=== PATIENT | female | born 1975 | race Caucasian/White ===

== ENCOUNTER 2023-02-10 04:11 | Day surgery (SDC) | payer OTHER ==
[2023-02-09 13:57] VITALS: BMI 39.1
[2023-02-10] MEDS ORDERED: LIDOCAINE HCL/PF 2% SDV 5ML VIAL ONE (07:37)
[2023-02-10] MEDS ORDERED: MIDAZOLAM HCL 2 MG/2 ML SINGLE DOSE VIAL ONE (07:38)
[2023-02-10] MEDS ORDERED: PROPOFOL 40 ML ONE (07:38)
[2023-02-10] MEDS ORDERED: FENTANYL CITRATE/PF 50 MCG/ML VIAL ONE ×4 (07:38→09:24)
[2023-02-10] MEDS ORDERED: IBUPROFEN 600 MG TABLET (FP) PO PRN (07:52)
[2023-02-10] MEDS ORDERED: IBUPROFEN 800 MG/8 ML IJ IVPB PRN (07:52)
[2023-02-10] MEDS ORDERED: ONDANSETRON 4 MG/2 ML VIAL IVPUSH PRN (07:52)
[2023-02-10] MEDS ORDERED: oxyCODONE HCL 5 MG TABLET PO PRN (07:52)
[2023-02-10] MEDS ORDERED: DEXAMETHASONE SOD PHOSPHATE 4 MG/1 ML VIAL ONE (07:56)
[2023-02-10] MEDS ORDERED: ELECTROLYTE-148 SOLN 1,000 ML IV SCH (08:00)
[2023-02-10] MEDS ORDERED: KETOROLAC TROMETHAMINE 30 MG/1 ML VIAL ONE ×2 (08:31→08:38)
[2023-02-10] MEDS ORDERED: LACTATED RINGERS SOLUTION 1,000 ML IV SCH (09:00)
[2023-02-10 10:32] VITALS: RESP 20
[2023-02-10 11:49] VITALS: BP 151/85; PULSE 86; TEMP 97
== END 2023-02-10 11:40 | disposition home or self-care (01) ==
LOC: JASU-SURG 04:11
PROVIDERS: ATTEND Obstetrics & Gynecology
PROC: 0UB98ZZ Excision of Uterus, Via Natural or Artificial Opening Endoscopic (ICD-10-PCS; principal; 2023-02-10 07:30)
DX: N84.0 Polyp of corpus uteri (principal); D25.9 Leiomyoma of uterus, unspecified; N92.4 Excessive bleeding in the premenopausal period
CPT/HCPCS: 81025; 86850; 86900; 86901; 88305-TC; 94760

== ENCOUNTER 2023-11-24 04:12 | Day surgery (SDC) | payer OTHER ==
[2023-11-20 15:50] VITALS: BMI 38.3
[2023-11-24] MEDS ORDERED: LIDOCAINE HCL/PF 2% SDV 5ML VIAL ONE (07:12)
[2023-11-24] MEDS ORDERED: DEXAMETHASONE SOD PHOSPHATE 4 MG/1 ML VIAL ONE (07:12)
[2023-11-24] MEDS ORDERED: PROPOFOL 40 ML ONE (07:13)
[2023-11-24] MEDS ORDERED: ROCURONIUM BROMIDE 50 MG/5 ML SYRINGE ONE (07:13)
[2023-11-24] MEDS ORDERED: SUCCINYLCHOLINE CHLORIDE 200 MG/10 ML SYRINGE ONE (07:13)
[2023-11-24] MEDS ORDERED: MIDAZOLAM HCL 2 MG/2 ML SINGLE DOSE VIAL ONE (07:13)
[2023-11-24] MEDS ORDERED: ACETAMINOPHEN INJECTION 100 ML ONE (07:28)
[2023-11-24] MEDS ORDERED: oxyCODONE HCL 5 MG TABLET PO PRN (07:52)
[2023-11-24] MEDS ORDERED: IBUPROFEN 600 MG TABLET (FP) PO PRN (07:52)
[2023-11-24] MEDS ORDERED: IBUPROFEN 800 MG/8 ML IJ IVPB PRN (07:52)
[2023-11-24] MEDS ORDERED: ONDANSETRON 4 MG/2 ML VIAL IVPUSH PRN ×2 (07:52→08:42)
[2023-11-24] MEDS ORDERED: ELECTROLYTE-148 SOLN 1,000 ML IV SCH (08:00)
[2023-11-24] MEDS ORDERED: ONDANSETRON 4 MG/2 ML VIAL ONE (08:10)
[2023-11-24] MEDS ORDERED: KETOROLAC TROMETHAMINE 30 MG/1 ML VIAL ONE (08:10)
[2023-11-24] MEDS ORDERED: LACTATED RINGERS SOLUTION 1,000 ML IV SCH (08:45)
[2023-11-24 09:56] VITALS: RESP 20; TEMP 97.1
[2023-11-24 13:44] VITALS: BP 118/72; PULSE 68
== END 2023-11-24 10:24 | disposition home or self-care (01) ==
LOC: JASU-SURG 04:12
PROVIDERS: ATTEND Obstetrics & Gynecology
PROC: 0U5B8ZZ Destruction of Endometrium, Via Natural or Artificial Opening Endoscopic (ICD-10-PCS; principal; 2023-11-24 07:30)
DX: N93.9 Abnormal uterine and vaginal bleeding, unspecified (principal); N80.03 Adenomyosis of the uterus; D25.0 Submucous leiomyoma of uterus; N84.0 Polyp of corpus uteri
CPT/HCPCS: 81025; 88305-TC; 94760; J0131